=== PATIENT | female | born 1985 | race Caucasian/White ===

== ENCOUNTER 2016-08-14 17:19 | Emergency (ER) | payer OTHER ==
[~2016-08-14] VITALS: Ht 165.1 cm; Wt 89.8 kg
[2016-08-14 17:29] VITALS: BP 111/71
[2016-08-14] MEDS ORDERED: CEPH-264 PO (18:14)
--- NOTE | 2016-08-14 18:14 | PHYS DOC ---
Past Medical History Past Medical History: Asthma Past Surgical History: Appendectomy, , Other Additional Past Surgical Histo: L rotator cuff Alcohol Use: None Drug Use: None Adult General Chief Complaint Chief Complaint: POST-OP PROBLEM HPI HPI Patient is a 31 year old female who presents with green drainage from her c- section incision. States this started while still inpatient postop and had a vac dressing (likely provena) applied and removed on discharge. She has continued small amounts of drainage from her incision. She notes minimal appropriate abdominal pain. Denies fever or chills, nausea or vomiting, dysuria , diarrhea, constipation, rash, fall, injury. Review of Systems Review of Systems Constitutional: Denies fever or chills [] Eyes: Denies change in visual acuity, redness, or eye pain [] HENT: Denies nasal congestion or sore throat [] Respiratory: Denies cough or shortness of breath [] Cardiovascular: No additional information not addressed in HPI [] GI: Denies abdominal pain, nausea, vomiting, bloody stools or diarrhea [] : Denies dysuria or hematuria [] Musculoskeletal: Denies back pain or joint pain [] Integument: Denies rash or skin lesions [] Neurologic: Denies headache, focal weakness or sensory changes [] Endocrine: Denies polyuria or polydipsia [] Allergies Allergies Allergies Coded Allergies Type Severity Reaction Last Updated Verified No Known Drug Allergies 08/14/16 No Physical Exam Physical Exam Constitutional: Well developed, well nourished, no acute distress, non-toxic appearance. [] HENT: Normocephalic, atraumatic, bilateral external ears normal, oropharynx moist, nose normal. [] Eyes: PERRLA, EOMI. [] Neck: Normal range of motion, suppler. [] Cardiovascular:Heart rate regular rhythm [] Lungs & Thorax: Bilateral breath sounds clear to auscultation [] Abdomen: Bowel sounds normal, soft. Low transverse abdominal incision without surrounding skin color changes, has intermittent skin separation along length of incision with wet yellow/green thick and thin discharge, no fat visualized, with minimal appropriate tenderness, no warmth/induration/crepitance/fluctuance/ expressible discharge [] Skin: Warm, dry, no erythema, no rash. [] Back: Normal ROM. [] Extremities: ROM intact, no edema. [] Neurologic: Alert and oriented X 3, normal motor function, normal sensory function, no focal deficits noted. [] Psychologic: Affect normal, judgement normal, mood normal. [] Current Patient Data Vital Signs Vital Signs Date Time Temp Pulse Resp B/P Pulse Ox O2 Delivery O2 Flow Rate FiO2 08/14/16 17:29 98.3 94 18 111/71 100 Room Air 98.3 Course & Med Decision Making Course & Med Decision Making Pertinent Labs and Imaging studies reviewed. (See chart for details) Incision with intermittent skin separation without obvious full dehiscence at this time. Discussed local wound care. Will place on prophylactic antibiotics. Encouraged close OB follow up. Return precautions given. She understands and agrees with plan. Dragon Disclaimer Dragon Disclaimer This electronic medical record was generated, in whole or in part, using a voice recognition dictation system. Departure Departure Impression: Primary Impression: Wound disruption, post-op, skin Disposition: HOME, SELF-CARE Condition: STABLE Referrals: NO PCP (PCP) Patient Instructions: Wound Care, [id number] Additional Instructions: Take keflex to help prevent infection. Follow up with your OB doctor. Return for any concerns. Scripts Cephalexin (Keflex)500 Mg Capsule1 Cap PO BID #10 CAP Prov:Reese FERNANDEZ MD 08/14/16 Problem Qualifiers Primary Impression: Wound disruption, post-op, skin Encounter type: initial encounter Qualified Code: T81.31XA - Disruption of external operation (surgical) wound, not elsewhere classified, initial encounter Reese FERNANDEZ MD Aug 14, 2016 18:14
== END 2016-08-14 18:52 | disposition home or self-care (01) ==
LOC: ER 17:19
DX: O90.0 Disruption of cesarean delivery wound (principal); J45.909 Unspecified asthma, uncomplicated; Z98.890 Other specified postprocedural states; Z90.49 Acquired absence of other specified parts of digestive tract
CPT/HCPCS: 99283

== ENCOUNTER 2016-12-30 13:57 | Emergency (ER) | payer OTHER ==
[~2016-12-30] VITALS: Ht 165.1 cm; Wt 87.5 kg
[~2016-12-30 13:57] MED LIST: CEPH-264 PO
[2016-12-30 14:10] VITALS: BP 132/58
[2016-12-30] MEDS ORDERED: ACYC800T PO (14:40)
--- NOTE | 2016-12-30 14:40 | PHYS DOC ---
Past Medical History Past Medical History: Asthma Past Surgical History: Appendectomy, , Other Additional Past Surgical Histo: L rotator cuff Alcohol Use: None Drug Use: None Adult General Chief Complaint Chief Complaint: SEXUALLY TRANSMITTED DISEASE HPI HPI Patient is a 31 year old female with history of genital herpes who presents with herpes breakout for 2 days. Patient denies any new STD exposures. Review of Systems Review of Systems Constitutional: Denies fever or chills [] : Herpes breakout Musculoskeletal: Denies back pain or joint pain [] Integument: Denies rash or skin lesions [] Neurologic: Denies headache, focal weakness or sensory changes [] Endocrine: Denies polyuria or polydipsia [] Allergies Allergies Allergies Coded Allergies Type Severity Reaction Last Updated Verified No Known Drug Allergies 08/14/16 No Physical Exam Physical Exam Constitutional: Well developed, well nourished, no acute distress, non-toxic appearance. [] Abdomen: Bowel sounds normal, soft, no tenderness, no masses, no pulsatile masses. [] Skin: Warm, dry, no erythema, no rash. [] Back: No tenderness, no CVA tenderness. [] Extremities: No tenderness, no cyanosis, no clubbing, ROM intact, no edema. [] Neurologic: Alert and oriented X 3, normal motor function, normal sensory function, no focal deficits noted. [] Psychologic: Affect normal, judgement normal, mood normal. [] Current Patient Data Vital Signs Vital Signs Date Time Temp Pulse Resp B/P (MAP) Pulse Ox O2 Delivery O2 Flow Rate FiO2 12/30/16 14:10 98.5 80 20 97 Room Air 98.5 EKG EKG [] Radiology/Procedures Radiology/Procedures [] Course & Med Decision Making Course & Med Decision Making Pertinent Labs and Imaging studies reviewed. (See chart for details) Patient is in the ED with genital herpes breakout. Be discharged with acyclovir. Follow-up with the health department further STD concerns. Dragon Disclaimer Beatriceon Disclaimer This electronic medical record was generated, in whole or in part, using a voice recognition dictation system. Departure Departure Impression: Primary Impression: Genital herpes Disposition: HOME, SELF-CARE Condition: STABLE Referrals: NO PCP (PCP) Follow-up with the health department in one week as needed Patient Instructions: Genital Herpes Additional Instructions: You were seen for genital herpes breakout. Follow-up with the health department as needed. Scripts Acyclovir (ACYCLOVIR) 800 Mg Tablet 1 TAB PO 5XDAY, #50 TAB Prov: ALLEN VILLARREAL APRN 12/30/16 Problem Qualifiers Primary Impression: Genital herpes Herpes simplex infection site: unspecified Qualified Codes: A60.00 - Herpesviral infection of urogenital system, unspecified ALLEN VILLARREAL APRN Dec 30, 2016 14:40
== END 2016-12-30 14:44 | disposition home or self-care (01) ==
LOC: ER 13:57
DX: A60.09 Herpesviral infection of other urogenital tract (principal); J45.909 Unspecified asthma, uncomplicated; Z90.49 Acquired absence of other specified parts of digestive tract
CPT/HCPCS: 99283

== ENCOUNTER 2019-06-10 13:31 | Emergency (ER) | payer MEDICAID, OTHER ==
[~2019-06-10] VITALS: Ht 165.1 cm; Wt 97.5 kg
[~2019-06-10 13:31] MED LIST changes: +ACYC800T PO
[2019-06-10 13:50] VITALS: BP 117/55
[2019-06-10] MEDS ORDERED: DEXAMETHASONE 4 MG TABLET PO STA (14:17)
--- NOTE | 2019-06-10 14:21 | PHYS DOC ---
Past Medical History Past Medical History: Asthma (KIRSTIE VILLELA APRN) Past Surgical History: Appendectomy, , Other Additional Past Surgical Histo: L rotator cuff (KIRSTIE VILLELA APRN) Alcohol Use: None Drug Use: None (KIRSTIE VILLELA APRN) Adult General Chief Complaint Chief Complaint: FLU SYMPTOM [facility] HPI Patient is a 34 year old female who presents loss of appetite, sore throat,fe caitlin, runny nose, cough, and body aches that started this past Sunday. The patient's been taking Kimberley-Harbinger at home for symptom management. Complete ROS were reviewed and found to be within normal limits, except as documented in the HPI (KIRSTIE VILLELA APRN) Current Medications Current Medications Current Medications Medications (Trade) Dose Ordered Sig/James Start Time Stop Time Status Last Admin Dose Admin Dexamethasone (Decadron) 10 mg 1X STAT 06/10/19 14:17 06/10/19 14:18 DC 06/10/19 14:17 10 MG (DOUG WILLARD MD) Allergies Allergies Allergies Coded Allergies Type Severity Reaction Last Updated Verified No Known Drug Allergies 08/14/16 No (DOUG WILLARD MD) Physical Exam Physical Exam Constitutional: Well developed, well nourished, no acute distress, non-toxic appearance. [] HENT: Normocephalic, atraumatic, bilateral external ears normal, oropharynx moist, tonsils are 2+/4 with no oral exudates, nose normal. [] Eyes: PERRLA, EOMI, conjunctiva normal, no discharge. [] Neck: Normal range of motion, no tenderness, supple, no stridor. [] Cardiovascular:Heart rate regular rhythm, no murmur [] Lungs & Thorax: Bilateral breath sounds clear to auscultation [] Skin: Warm, dry, no erythema, no rash. [] Neurologic: Alert and oriented X 3, normal motor function, normal sensory function, no focal deficits noted. [] Psychologic: Affect normal, judgement normal, mood normal. [] (KIRSTIE VILLELA APRN) Current Patient Data Vital Signs Vital Signs Date Time Temp Pulse Resp B/P (MAP) Pulse Ox O2 Delivery O2 Flow Rate FiO2 06/10/19 13:50 98.8 89 16 117/55 (75) 99 Room Air 98.8 (DOUG WILLARD MD) Lab Values Laboratory Tests Test 06/10/19 14:24 Group A Streptococcus Rapid Negative (NEGATIVE) (DOUG WILLARD MD) EKG EKG [] (KIRSTIE VILLELA APRN) Radiology/Procedures Radiology/Procedures [] (KIRSTIE VILLELA APRN) Course & Med Decision Making Course & Med Decision Making Pertinent Labs and Imaging studies reviewed. (See chart for details) Will get Strep test and give Decadron. The patient appears to have the Flu clinically. Discussed with patient the importance of drinking plenty of fluids. I also discussed the importance of rest. It was discussed with the patient that she is contagious and to stay away from others until it has been a week since the start of her symptoms. Discussed with the patient that she can take Zyrtec per label instructions for runny nose. Also discussed the proper control of fever by rotating Tylenol and Ibuprofen at home. Will give the patient Decadron in the ER for symptom control. Strep is negative. (KIRSTIE VILLELA APRN) Course & Med Decision Making Staff Physician Addendum: I was working in the ER during the course of this patient's visit. I was available for consultation as needed, but I was not directly involved in the care of this patient. (DOUG WILLARD MD) Dragon Disclaimer Dragon Disclaimer This electronic medical record was generated, in whole or in part, using a voice recognition dictation system. (KIRSTIE VILLELA APRN) Departure Departure Impression: Primary Impression: Viral syndrome Disposition: 01 HOME, SELF-CARE Condition: STABLE Referrals: NO PCP (PCP) Patient Instructions: Viral Syndrome Additional Instructions: Thank you for visiting [facility]. We appreciate you trusting us with your care. If any additional problems come up don't hesitate to return to visit us. Please follow up with your primary care provider so they can plan additional care if needed and know about the problem that you had. If symptoms worsen come back to the Emergency Department. Any concerning symptoms that start such as chest pain, shortness of air, weakness or numbness on one side of the body, running high fevers or any other concerning symptoms return to the ER. Please fill your medications at any pharmacy and follow the prescription instructions. Please drink plenty of fluids. If unable to keep fluids down please return to ER. Please get Tylenol and Ibuprofen over the counter. Give each medication every 6 hours as directed by the medication labels. In order to utilize the peak of the medications stagger the medications to where the child is getting one of the m edications every 3 hours. For example if you give Ibuprofen at 3 PM, you then give Tylenol at 6 PM and Ibuprofen again at 9 PM, and then Tylenol at midnight. Please get Zyrtec over the counter and take per label instructions for runny nose. KIRSTIE VILLELA APRN Jun 10, 2019 14:21 DOUG WILLARD MD Jun 11, 2019 07:56
== END 2019-06-10 14:44 | disposition home or self-care (01) ==
LOC: ER 13:31
DX: B34.9 Viral infection, unspecified (principal); J45.909 Unspecified asthma, uncomplicated
CPT/HCPCS: 87070; 87880; 99283; J8540

== ENCOUNTER 2020-03-28 00:15 | Emergency (ER) | payer MEDICAID ==
[~2020-03-28] VITALS: Ht 165.1 cm; Wt 220.0 kg
[2020-03-28 00:30] VITALS: BP 129/61
[2020-03-28] MEDS ORDERED: KETOROLAC 60 MG/2 ML VIAL. IM ONE (01:45)
[2020-03-28] MEDS ORDERED: ORPHENADRINE CITRATE 60 MG/2 ML VIAL. IM ONE (01:45)
[2020-03-28] MEDS ORDERED: CYCL5TAB PO (01:49)
[2020-03-28] MEDS ORDERED: IBUP-1060 PO (01:49)
--- NOTE | 2020-03-28 01:50 | ED.ADGEN ---
Past Medical History Past Medical History: Asthma Past Surgical History: Appendectomy, , Other Additional Past Surgical Histo: L rotator cuff, AND APENDIX Smoking Status: Never Smoker Alcohol Use: None Drug Use: None General Adult EDM: Chief Complaint: BACK PAIN OR INJURY HPI: HPI: Patient is a 35 year old female with left lower back pain radiating down the back of her left leg. 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 Has not has had pain in the past. Patient states she does have a history of scoliosis. Denies any urinary symptoms. Has not taken anything at home. Review of Systems: Review of Systems: Constitutional: Denies fever or chills. [] Eyes: Denies change in visual acuity. [] HENT: Denies nasal congestion or sore throat. [] Respiratory: Denies cough or shortness of breath. [] Cardiovascular: Denies chest pain or edema. [] GI: Denies abdominal pain, nausea, vomiting, bloody stools or diarrhea. [] : Denies dysuria. [] Musculoskeletal: Back and left hip, buttock, posterior leg pain Integument: Denies rash. [] Neurologic: Denies headache, focal weakness or sensory changes. [] Endocrine: Denies polyuria or polydipsia. [] Lymphatic: Denies swollen glands. [] Psychiatric: Denies depression or anxiety. [] Current Medications: Current Medications Medications (Trade) Dose Ordered Sig/James Start Time Stop Time Status Last Admin Dose Admin Ketorolac Tromethamine (Toradol Im) 60 mg 1X ONCE 03/28/20 01:45 03/28/20 01:46 DC 03/28/20 01:53 60 MG Orphenadrine Citrate (Norflex) 60 mg 1X ONCE 03/28/20 01:45 03/28/20 01:46 DC 03/28/20 01:53 60 MG Allergies: Allergies: Allergies Coded Allergies Type Severity Reaction Last Updated Verified No Known Drug Allergies 08/14/16 No Physical Exam: PE: Constitutional: Well developed, well nourished, no acute distress, non-toxic appearance. [] HENT: Normocephalic, atraumatic, bilateral external ears normal, oropharynx moist, no oral exudates, nose normal. [] Eyes: PERRLA, EOMI, conjunctiva normal, no discharge. [] Neck: Normal range of motion, no tenderness, supple, no stridor. [] Cardiovascular:Heart rate regular rhythm, no murmur [] Lungs & Thorax: Bilateral breath sounds clear to auscultation [] Abdomen: Bowel sounds normal, soft, no tenderness, no masses, no pulsatile masses. [] Skin: Warm, dry, no erythema, no rash. [] Back: Point tenderness around lateral left lower lumbar region, moderate spine curvature noted, no step-off, no CVA tenderness. [] Supine straight leg raise negative Extremities: No tenderness, no cyanosis, no clubbing, ROM intact, no edema. [] Neurologic: Alert and oriented X 3, normal motor function, normal sensory function, no focal deficits noted. [] Psychologic: Affect normal, judgement normal, mood normal. [] Current Patient Data: Vital Signs: Vital Signs Date Time Temp Pulse Resp B/P (MAP) Pulse Ox O2 Delivery O2 Flow Rate FiO2 03/28/20 00:30 97.8 81 14 129/61 (83) 98 Room Air 97.8 EKG: EKG: [] Heart Score: Risk Factors: Risk Factors: DM, Current or recent (<one month) smoker, HTN, HLP, family history of CAD, obesity. Risk Scores: Score 0 - 3: 2.5% MACE over next 6 weeks - Discharge Home Score 4 - 6: 20.3% MACE over next 6 weeks - Admit for Clinical Observation Score 7 - 10: 72.7% MACE over next 6 weeks - Early Invasive Strategies Radiology/Procedures: Radiology/Procedures: [] Course & Med Decision Making: Course & Med Decision Making Atraumatic back pain with no red flag signs and history, physical, medical history. Will treat symptomatically, patient agrees to plan. [] Dragon Disclaimer: Dragon Disclaimer: This electronic medical record was generated, in whole or in part, using a voice recognition dictation system. Departure Departure Impression: Primary Impression: Back muscle spasm Additional Impression: Sciatica of left side Disposition: 01 DC HOME SELF CARE/HOMELESS Condition: STABLE Referrals: NO PCP (PCP) Patient Instructions: Back Injury Prevention Additional Instructions: [facility] [address] [place] [address] [facility] [address] [place] [address] [facility] [address] [place] [address] [facility] [address] [place] [address] [facility] [address] [place] [address] [address] [place] [address] [address] [place] [address] [facility] [address] [place] [address] [facility] [address] [place] [address] [facility] [address] [place] [address] Scripts Cyclobenzaprine Hcl (CYCLOBENZAPRINE HCL) 5 Mg Tablet 1 TAB PO TID for pain for 5 Days, #15 TAB Prov: RAMBO SIDDIQI MD 03/28/20 Ibuprofen (IBUPROFEN) 800 Mg Tablet 800 MG PO PRN Q8HRS PRN for PAIN for 10 Days, #30 TAB Prov: RAMBO SIDDIQI MD 03/28/20 Problem Qualifiers RAMBO SIDDIQI MD Mar 28, 2020 01:49
== END 2020-03-28 01:25 | disposition home or self-care (01) ==
LOC: ER 00:15
DX: M54.42 Lumbago with sciatica, left side (principal); M62.838 Other muscle spasm; J45.909 Unspecified asthma, uncomplicated; Z90.89 Acquired absence of other organs; Z98.890 Other specified postprocedural states
CPT/HCPCS: 81025; 96372; 99284; J1885; J2360

== ENCOUNTER 2020-08-23 10:06 | Emergency (ER) | payer MEDICAID ==
[~2020-08-23] VITALS: Ht 165.1 cm; Wt 100.0 kg
[~2020-08-23 10:06] MED LIST changes: +CYCL5TAB PO; +IBUP-1060 PO
[2020-08-23 10:07] VITALS: BP 108/55
--- NOTE | 2020-08-23 10:54 | PHYS DOC ---
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 Patient states the pain to the area only occurs when she touches the region or due to friction of her hips rubbing each other. Patient describes the pain as throbbing and intermittent. Denies any fever. Denies any drainage. Denies any concerns for STDs. Review of Systems: Review of Systems: Constitutional: Denies fever or chills. [] GI: Reports being . Denies abdominal pain, nausea, vomiting, bloody stools or diarrhea. [] : Denies dysuria. [] Musculoskeletal: Denies back pain or joint pain. [] Integument: Reports: Around the left groin Neurologic: Denies headache, focal weakness or sensory changes. [] Psychiatric: Denies depression or anxiety. [] Heart Score: C/O Chest Pain: N/A Risk Factors: Risk Factors: DM, Current or recent (<one month) smoker, HTN, HLP, family history of CAD, obesity. Risk Scores: Score 0 - 3: 2.5% MACE over next 6 weeks - Discharge Home Score 4 - 6: 20.3% MACE over next 6 weeks - Admit for Clinical Observation Score 7 - 10: 72.7% MACE over next 6 weeks - Early Invasive Strategies Allergies: Allergies: Allergies Coded Allergies Type Severity Reaction Last Updated Verified No Known Drug Allergies 08/14/16 No Physical Exam: PE: Constitutional: Well developed, well nourished, no acute distress, non-toxic appearance. [] Abdomen: Gravid abdomen. Bowel sounds normal, soft, no tenderness, no masses, no pulsatile masses. [] External pubic region exam Left groin region with a indurated nonerythematous swollen area roughly 0.2 x 1 cm. The area is firm, tender to touch, no fluctuance, no signs of infection. This could be a swollen lymph node or possibly an ingrown hair though I doubt ingrown hair for 3 weeks. Skin: Warm, dry, no erythema, no rash. [] Back: No tenderness, no CVA tenderness. [] Extremities: No tenderness, no cyanosis, no clubbing, ROM intact, no edema. [] Neurologic: Alert and oriented X 3, normal motor function, normal sensory function, no focal deficits noted. [] Psychologic: Affect normal, judgement normal, mood normal. [] Current Patient Data: Vital Signs: Vital Signs Date Time Temp Pulse Resp B/P (MAP) Pulse Ox O2 Delivery O2 Flow Rate FiO2 08/23/20 10:07 98.5 89 18 108/55 (72) 97 Room Air 98.5 EKG: EKG: [] Radiology/Procedures: Radiology/Procedures: [] Course & Med Decision Making: Course & Med Decision Making Pertinent Labs and Imaging studies reviewed. (See chart for details) This is a 35-year-old female patient currently 23 weeks presenting to the ED today with a swollen area on the left groin. There is no signs of infection to this region, this is a reactive lymph node. Recommended warm compresses to the area and following up with EMPLOYEE COMMUNICATIONS COORDINATOR. Tetanus is up-to-date. Provided return precautions. Dragon Disclaimer: Janis Disclaimer: This electronic medical record was generated, in whole or in part, using a voice recognition dictation system. Departure Departure Impression: Primary Impression: Lymphadenopathy, inguinal Disposition: 01 DC HOME SELF CARE/HOMELESS Condition: STABLE Referrals: NO PCP (PCP) follow up with your OBGYN Additional Instructions: You have a swollen area to the left groin region. This looks more like a swollen lymph node or it could be an ingrown hair. Apply warm compresses to the area twice a day. You can take Tylenol as needed for pain. Please follow-up with your EMPLOYEE COMMUNICATIONS COORDINATOR. ALLEN VILLARREAL APRN Aug 23, 2020 10:54
== END 2020-08-23 11:15 | disposition home or self-care (01) ==
LOC: ER 10:06
DX: O26.892 Other specified pregnancy related conditions, second trimester (principal); R59.0 Localized enlarged lymph nodes; J45.909 Unspecified asthma, uncomplicated; Z90.49 Acquired absence of other specified parts of digestive tract; Z98.890 Other specified postprocedural states
CPT/HCPCS: 99282